=== PATIENT | male | born 1990 ===

== ENCOUNTER 2024-10-22 09:41 | Outpatient (REF) | payer SELFPAY ==
[2024-10-22 15:13] LABS: TSH (W/Ref FT4) 3.85 uIU/mL (0.36-3.74)
[2024-10-22 16:02] LABS: FREE T4 0.77 ng/dL (0.76-1.46)
[2024-10-26 13:38] LABS: Testosterone, Free 15.8 ng/dL (4.85-19.0); Testosterone, Total 614 ng/dL (240-950)
== END 2024-10-22 09:42 | disposition home or self-care (01) ==
LOC: NCHCN 09:41
PROVIDERS: Visit Provider Family Medicine
DX: R53.83 Other fatigue (principal)
CPT/HCPCS: 84402; 84403; 84439; 84443